=== PATIENT | male | born 1970 | race Caucasian/White ===

== ENCOUNTER 2022-07-05 12:41 | Outpatient (CLI) | payer OTHER | END 2022-07-05 12:42 | disposition home or self-care (01) | LOC: DI 12:41 | PROVIDERS: ATTEND Family Medicine | DX: I10 Essential (primary) hypertension (principal) | CPT/HCPCS: 93306 ==

== ENCOUNTER 2022-07-11 14:05 | Outpatient (CLI) | payer OTHER ==
[2022-07-11] MEDS ORDERED: iohexoL-300 100 ML VIAL ONE (15:47)
--- NOTE | 2022-07-11 16:52 | Ultrasound Report ---
PROCEDURE: Testicle INDICATIONS: RIGHT TESTICULAR PAIN TECHNIQUE: Real-time scanning was performed of the scrotum and testicles, with image documentation. Color and p ulse Doppler interrogation was performed of both testicles. COMPARISON: None. FINDINGS: Symmetric and normal appearance of both testicles. No epididymal cyst or other significant epididymal abnormality demonstrated. No scrotal mass, hydrocele, or varicocele. IMPRESSION: Normal study. Reviewed by: Cam Sylvester MD on 07/11/2022 4:51 PM PDT Approved by: Cam Sylvester MD on 07/11/2022 4:51 PM PDT Station ID: [id number]
--- NOTE | 2022-07-11 17:32 | CT Report ---
PROCEDURE: ABDOMEN/PELVIS W INDICATIONS: ABD PAIN CONTRAST: 100mL Omni 300 TECHNIQUE: After the administration of oral and intravenous contrast, 5 mm thick sections acquired from the diap hragms to the symphysis. 5 mm thick coronal and sagittal reformats were acquired. For radiation dos e reduction, the following was used: automated exposure control, adjustment of mA and/or kV accordin g to patient size. COMPARISON: None. FINDINGS: Image quality: Excellent. ABDOMEN: Lung bases: Lung bases are clear. Heart size is normal. Solid organs: Rounded mass in the pancreatic tail measuring 2.8 x 1.7 cm (07/25). No pancreatic ductal dilation. Remaining solid organs are unremarkable. Peritoneum and bowel: Colonic diverticulosis without evidence of diverticulitis. No free fluid. Nodes and vessels: No retroperitoneal or mesenteric adenopathy by size criteria. Aorta and inferior vena cava are normal in size. Miscellaneous: No ventral hernias. PELVIS: Genitourinary: Bladder wall thickness is normal. Miscellaneous: No inguinal hernias or adenopathy. Bones: No suspicious bony lesions. No vertebral body compression fractures. IMPRESSION: Rounded masslike lesion in the pancreatic tail measuring a 2.8 x 1.7 cm. Differential includes normal parenchyma with decreased fatty lobulation, intraparenchymal splenule, neuroendocrine tumor. Recomme nd MRI with contrast for complete characterization. Reviewed by: Donnie Hernandez on 07/11/2022 5:31 PM PDT Approved by: Donnie Hernandez on 07/11/2022 5:31 PM PDT Station ID: [id number]
[2022-07-11] MEDS ORDERED: iohexoL-300 100 ML VIAL IVP ONE (18:16)
[2022-07-11] MEDS ORDERED: DIATRIZOATE MEGLU/DIATRIZO SOD 30 ML BOTTLE PO ONE (18:17)
== END 2022-07-11 14:06 | disposition home or self-care (01) ==
LOC: DI 14:05
PROVIDERS: ATTEND Nurse Practitioner
DX: K86.9 Disease of pancreas, unspecified (principal); N50.811 Right testicular pain
CPT/HCPCS: 74177; 76870; Q9963; Q9967